=== PATIENT | female | born 1960 | race Hispanic/Latino ===

== ENCOUNTER 2017-12-10 07:18 | Day surgery (SDC) | payer BC ==
[~2017-12-10] VITALS: Ht 154.9 cm; Wt 90.8 kg
[~2017-12-10 07:18] MED LIST: LOSA50TA37 PO; METF10004 PO; SODIUM CHLORIDE 0.9% 1000ML 1,000 ML IV ONE
[2017-12-10 08:01] VITALS: BP 154/61
[2017-12-10] MEDS ORDERED: PROPOFOL 10 MG/ML 20ML VIAL IV ONE (10:04)
[2017-12-10 10:24] VITALS: BP 99/27
== END 2017-12-10 10:55 ==
LOC: DAH 07:18 → ENDO 07:18
PROVIDERS: ATTEND Internal Medicine Gastroenterology
DX: Z12.11 Encounter for screening for malignant neoplasm of colon (principal); K57.30 Diverticulosis of large intestine without perforation or abscess without bleeding; I10 Essential (primary) hypertension; E11.9 Type 2 diabetes mellitus without complications; Z88.0 Allergy status to penicillin; Z79.84 Long term (current) use of oral hypoglycemic drugs; Z98.890 Other specified postprocedural states
CPT/HCPCS: 45378; 82948 ×2; A4606; J2704; J7030